=== PATIENT | male | born 1975 | race Two or more races ===

== ENCOUNTER 2025-04-28 01:34 | Emergency (ER) | payer OTHER, MEDICAID ==
[~2025-04-28] VITALS: Ht 172.7 cm; Wt 92.4 kg
[2025-04-28 01:34] VITALS: BP 152/81; RESP 20; TEMP 98.8; O2SAT 93
--- NOTE | 2025-04-28 01:52 | ECG ---
[facility] Test Date: 2025-04-28 Test Time: 01:45:15 Pat Name: LEO TOBIN Department: ED Room: Gender: M Individual Pension Adviser: : 1975 Requested By: DWIGHT RICE Order Number: [id number] Reading MD: Measurements Intervals [place] Rate: 93 P: 0 MD: 0 QRS: 7 QRSD: 91 T: 80 QT: 362 QTc: 451 Interpretive Statements Atrial fibrillation Borderline repolarization abnormality Please click the below link to view image of tracing.
[2025-04-28 02:24] LABS: Hematocrit 24.4 % (41.0-53.0); Hemoglobin 8.0 g/dL (13.5-17.5); Mean Corpuscular Hemoglobin 28.3 pg (28.0-32.0); Mean Corpuscular Volume 85.9 fL (80.0-100.0); Nucleated Red Blood Cells % 0.0 %
[2025-04-28 02:37] LABS: Alanine Aminotransferase 30 U/L (7-40); Albumin 4.1 g/dL (3.2-4.8); Alkaline Phosphatase 73 U/L (46-116); Anion Gap 17 (5-15); BUN/Creatinine Ratio 4.7 (10.0-20.0); Chloride 105 mmol/L (98-107); Sodium 141 mmol/L (136-145); Total Protein 7.1 g/dL (5.7-8.2)
[2025-04-28 02:41] LABS: Blood Urea Nitrogen 67 mg/dL (9-23); Carbon Dioxide 19 mmol/L (20-31); Glucose 208 mg/dL (74-106)
[2025-04-28 02:42] LABS: Bilirubin, Total < 0.2 mg/dL (0.2-1.0); Calcium 8.6 mg/dL (8.7-10.4)
[2025-04-28 02:45] LABS: Potassium 6.8 mmol/L (3.5-5.1)
--- NOTE | 2025-04-28 03:21 | DVH ---
CHEST RADIOGRAPH Indication: chest pain Technique: Single frontal view of the chest was obtained COMPARISON: XY CHEST PORTABLE on DOS: 11/13/23, XY CHEST PORTABLE on DOS: 06/28/23, XY CHEST PORTABLE o n DOS: 02/28/23, XY CHEST XRAY 1 VIEW on DOS: 11/02/22, TRANSESOPH ECHOCARDIOGRAM on DOS: 09/26/22 FINDINGS: Lines and Tubes: None Lungs: Diffuse increased prominence of the pulmonary vasculature and mild patchy bibasilar pulmonary airspace disease. Pleura: No effusion. No pneumothorax. Cardiomediastinal contours: Cardiomegaly. Bones: Unremarkable IMPRESSION: 1. Cardiomegaly with mild pulmonary vascular congestion and bibasilar pulmonary airspace disease.
[2025-04-28 04:00] VITALS: PULSE 93
--- NOTE | 2025-04-28 04:00 | ED.PDOC ---
History of Present Illness HPI Comments 50 y/o obese M, with a Hx of ESRD w/HD on //, DM, and HTN, presents with c/c of nonradiating, left sided chest pain. Pain is reported to have begun, suddenly, at rest, last night, at 2200. Denies any shortness of breath or further acute symptoms. Chief Complaint: Chest Pain Time Seen by MD: 01:45 Reviewed Notes: Nurses Notes, Medications, Allergies Allergies: Coded Allergies: NO KNOWN ALLERGIES (Unverified , 04/28/25) Information Source: Patient, Relative Mode of Arrival: Ambulatory Severity: Moderate Timing: Hours Duration: Since onset Prehospital treatment: None Past Medical History PAST MEDICAL HISTORY: DM, ESRD (w/HD /W/), HTN All Other Systems: Reviewed and Negative (As per HPI) Physical Exam General Appearance: Mild Distress, Obese HEENT: Normal ENT Inspection, Pharynx Normal, TMs Normal Neck: Full Range of Motion, Non-Tender, Normal, Normal Inspection Respiratory: Chest Non-Tender, Lungs Clear, No Accessory Muscle Use, No Respiratory Distress, Normal Breath Sounds Cardiovascular: No Edema, No JVD, No Murmur, No Gallop, Normal Peripheral Pulses, Regular Rate/Rhythm Breast Exam: Deferred Gastrointestinal: No Organomegaly, Non Tender, No Pulsatile Mass, Normal Bowel Sounds, Soft Genitalia: Deferred Pelvic: Deferred Rectal: Deferred Extremities: No calf tenderness, Normal capillary refill, Normal inspection, Normal range of motion, Non-tender, No pedal edema Musculoskeletal : Apperance: Normal Neurologic: Alert, nutrition manager II-XII nml as Tested, No Motor Deficits, Normal Affect, Normal Mood, No Sensory Deficits Cerebellar Function: Normal Reflexes: Normal Skin: Dry, Normal Color, Warm Lymphatic: No Adenopathy Was a procedure done? Was a procedure done?: No EKG EKG : Pulse Rate (adult): 93 [place]: Normal Cardiac Rhythm: NSR Block: None Hypertrophy: None ST: Normal Differential Dx Considerations may include: OH, PE, ACS, URI, PNA, angina, anxiety, noncompliance, uremia, fluid overload, among others X-Ray, Labs, Meds, VS Vital Signs Date Time Temp Pulse Resp B/P (MAP) Pulse Ox O2 Delivery O2 Flow Rate FiO2 04/28/25 04:00 93 04/28/25 01:45 93 04/28/25 01:34 98.8 91 20 152/81 93 98.8 Lab Test 04/28/25 03:11 04/28/25 02:01 Range/Units Troponin I High Sensitivity 53 27 </=54 ng/L White Blood Count 11.7 H 4.4-10.8 10^3/uL Red Blood Count 2.84 L 4.5-5.90 10^6/uL Hemoglobin 8.0 L 13.5-17.5 g/dL Hematocrit 24.4 L 41.0-53.0 % Mean Corpuscular Volume 85.9 80.0-100.0 fL Mean Corpuscular Hemoglobin 28.3 28.0-32.0 pg Mean Corpuscular Hemoglobin Concent 33.0 32.0-36.0 g/dL Red Cell Distribution Width 15.8 H 11.8-14.3 % Platelet Count 220 140-450 10^3/uL Mean Platelet Volume 8.8 6.9-10.8 fL Neutrophils (%) (Auto) 76.3 37.0-80.0 % Lymphocytes (%) (Auto) 14.0 10.0-50.0 % Monocytes (%) (Auto) 6.6 0.0-12.0 % Eosinophils (%) (Auto) 2.4 0.0-7.0 % Basophils (%) (Auto) 0.7 0.0-2.0 % Neutrophils # (Auto) 9.0 H 1.6-8.6 10 ^3/uL Lymphocytes # (Auto) 1.6 0.4-5.4 10 ^3/uL Monocytes # (Auto) 0.8 0-1.3 10 ^3/uL Eosinophils # (Auto) 0.3 0-0.8 10 ^3/uL Basophils # (Auto) 0.1 0-0.2 10 ^3/uL Nucleated Red Blood Cells 0.0 % Sodium Level 141 136-145 mmol/L Potassium Level 6.8 *H 3.5-5.1 mmol/L Chloride Level 105 98-107 mmol/L Carbon Dioxide Level 19 L 20-31 mmol/L Anion Gap 17 H 5-15 Blood Urea Nitrogen 67 H 9-23 mg/dL Creatinine 14.26 *H 0.700-1.30 mg/dL Glomerular Filtration Rate Calc 4 >90 mL/min BUN/Creatinine Ratio 4.7 L 10.0-20.0 Serum Glucose 208 H 74-106 mg/dL Calcium Level 8.6 L 8.7-10.4 mg/dL Total Bilirubin < 0.2 L 0.2-1.0 mg/dL Aspartate Amino Transferase (AST) 11 L 13-40 U/L Alanine Aminotransferase (ALT) 30 7-40 U/L Alkaline Phosphatase 73 46-116 U/L Total Protein 7.1 5.7-8.2 g/dL Albumin 4.1 3.2-4.8 g/dL [place] [address] Ph: [phone] DIAGNOSTIC IMAGING Diagnostic Imaging Report : [id number] Signed PATIENT: LEO TOBIN ACCT: [id number] UNIT: [id number] : 1975 LOC: ER ROOM / BED: / AGE / SEX: 50 / M ADM STATUS: REG ER SERVICE 5 ORDERING PHYSICIAN: DWIGHT RICE MD PROCEDURE(s): CXRP - CHEST PORTABLE REASON: chest pain ORDER NUMBER(s): [id number], ACCESSION NUMBER(s): [id number] CHEST RADIOGRAPH Indication: chest pain Technique: Single frontal view of the chest was obtained COMPARISON: XY CHEST PORTABLE on DOS: 11/13/23, XY CHEST PORTABLE on DOS: 06/28/23, XY CHEST PORTABLE on DOS: 02/28/23, XY CHEST XRAY 1 VIEW on DOS: 11/02/22, TRANSESOPH ECHOCARDIOGRAM on DOS: 09/26/22 FINDINGS: Lines and Tubes: None Lungs: Diffuse increased prominence of the pulmonary vasculature and mild patchy bibasilar pulmonary airspace disease. Pleura: No effusion. No pneumothorax. Cardiomediastinal contours: Cardiomegaly. Bones: Unremarkable IMPRESSION: 1. Cardiomegaly with mild pulmonary vascular congestion and bibasilar pulmonary airspace disease. ATED BY: BLAKE LOWERY MD DICTATED DATE/TIME: 04/28/25318 SIGNED BY: BLAKE LOWERY MD SIGNED DATE/TIME: 04/28/25318 CC: Time of 1ST Reevaluation: 02:15 Reevaluation 1ST: Unchanged Patient Education/Counseling: Diagnosis, Treatment, Need For Follow Up Family Education/Counseling: No Family Present SEPSIS Sepsis Screen Date sepsis recognized/suspect: Apr 28, 2025 Time Sepsis recognized/suspect: 0134 Recent Procedure: No On Antibiotic Therapy: No Respiratory Rate >20: No Heart Rate >90: No Temp<36 C (96.8 F) or >38.3 C: No SBP <90 or MAP <65 mmHG: No New Acute Mental Status Change: No Is the patient on CPAP, BIPAP,: No Physician Orders Chest Portable (04/28/25 01:46) Vital Signs Date Time Temp Pulse Resp B/P (MAP) Pulse Ox O2 Delivery O2 Flow Rate FiO2 04/28/25 04:00 93 04/28/25 01:45 93 04/28/25 01:34 98.8 91 20 152/81 93 98.8 Laboratory Tests Test 04/28/25 02:01 White Blood Count 11.7 10^3/uL (4.4-10.8) H Departure 1 Departure Time of Disposition: 04:00 Impression: Primary Impression: End stage renal failure on dialysis Additional Impression: Fluid overload Disposition: LEFT AGAINST MEDICAL ADVICE Condition: Guarded Discharged With: Self, Spouse Comments Patient with end-stage renal failure on dialysis Monday. Patient's blood pressure is elevated. There signs of fluid overload. I put the patient need to be admitted for dialysis. Patient is declining admission and wants to go to his regular dialysis. Patient will sign against medical advice. Patient and spouse acknowledge the risk of and disability Critical Care Note Critical Care Time?: No Stability Stability form required: No Heart Score Heart Score: Heart Score Response (Comments) Value History N/A 0 EKG N/A 0 Age N/A 0 Risk Factors N/A 0 Troponin N/A 0 Total 0 I personally scribed for DWIGHT RICE MD ([email or web address]) on 04/28/25 at 04:00. Electronically submitted by Dain Renee ([email or web address]). DWIGHT RICE MD Apr 28, 2025 04:00
== END 2025-04-28 04:02 | disposition left against medical advice (07) ==
LOC: ER 01:34
DX: I12.0 Hypertensive chronic kidney disease with stage 5 chronic kidney disease or end stage renal disease (principal); E11.22 Type 2 diabetes mellitus with diabetic chronic kidney disease; N18.6 End stage renal disease; E87.70 Fluid overload, unspecified; E66.9 Obesity, unspecified; Z99.2 Dependence on renal dialysis; Z68.31 Body mass index [BMI] 31.0-31.9, adult
CPT/HCPCS: 36415; 71045; 80053; 84484; 85025; 93005